=== PATIENT | female | born 1985 | race Caucasian/White ===

== ENCOUNTER 2025-05-19 05:41 | Day surgery (SDC) | payer OTHER ==
[2025-05-18 11:42] VITALS: BMI 27.2
[2025-05-19] MEDS ORDERED: Bacitracin Zinc Ointment 30 gm TUBE ONE (06:34)
[2025-05-19] MEDS ORDERED: CEFAZOLIN 2 GM VIAL ONE (06:38)
[2025-05-19] MEDS ORDERED: fentaNYL PF 100 MCG/2 ML SYRINGE ONE (07:28)
[2025-05-19] MEDS ORDERED: Ondansetron PF 4 MG/2 ML Vial ONE (07:29)
[2025-05-19] MEDS ORDERED: Ketorolac Tromethamine 30 MG (1 mL) VIAL ONE (07:29)
[2025-05-19] MEDS ORDERED: Lidocaine 1% PF 5 ML VIAL ONE (07:29)
[2025-05-19] MEDS ORDERED: Ropivacaine 0.5% HCl/PF (150 MG/30 ML VIAL) ONE (07:41)
[2025-05-19] MEDS ORDERED: Ropivacaine 2% HCl/PF (20 MG/10 ML VIAL) ONE (07:41)
[2025-05-19] MEDS ORDERED: PROPOFOL 200 MG/20 ML VIAL ONE (07:41)
[2025-05-19] MEDS ORDERED: PHENYLEPHRINE-NS 100 MCG/ML 10 ML SYRINGE ONE (09:12)
[2025-05-19] MEDS ORDERED: HYDROcodone/Acetaminophen 5/325 mg Tablet ONE (11:04)
== END 2025-05-19 11:25 | disposition home or self-care (01) ==
LOC: SDC 05:41
PROVIDERS: ATTEND Orthopaedic Surgery
DX: S63.592A Other specified sprain of left wrist, initial encounter (principal); X58.XXXA Exposure to other specified factors, initial encounter; M65.939 Unspecified synovitis and tenosynovitis, unspecified forearm; G56.02 Carpal tunnel syndrome, left upper limb; Z88.2 Allergy status to sulfonamides
CPT/HCPCS: A6223; J0665; J1100; J1885; J2250; J2272; J2405; J2704; J2795; J3010